=== PATIENT | female | born 1950 | race Caucasian/White ===

== ENCOUNTER 2021-11-04 08:20 | Observation (INO) ==
[2021-11-04] MEDS ORDERED: Ipratropium/Albuterol Neb 3 ML IH ONE (08:29)
[2021-11-04] MEDS ORDERED: methylPREDNISolone 125 MG/2 ML VIAL IVP ONE (08:29)
[2021-11-04] MEDS ORDERED: 0.9 % Sodium Chloride 1,000 ML IVC ONE (08:43)
[2021-11-04 09:13] LABS: Mean Corpuscular Volume 76.9 fL (83.0-100.0)
[2021-11-04 09:15] LABS: Basophils % 0.2 %; Eosinophils # 0.2 K/mcL (0.0-0.6); Eosinophils % 1.1 %; Hemoglobin 10.2 g/dL (11.5-15.4); Immature Granulocytes % 0.5 % (0-4); Lymphocytes % 14.5 %; Mean Corpuscular HGB Conc 28.3 g/dL (31.6-35.5); Mean Corpuscular Hemoglobin 21.8 pg (28.0-33.3); Mean Platelet Volume 10.7 fL (9.4-12.4); Monocytes # 0.7 K/mcL (0.0-1.3); Monocytes % 5.3 %; Neutrophils # 10.5 K/mcL (1.6-8.9); Platelet Count 249 K/mcL (140-400); Red Blood Count 4.68 M/mcL (3.82-4.97); Red Cell Distribution Width 22.9 % (11.5-14.5); Segmented Neutrophils % 78.4 %; White Blood Count 13.4 K/mcL (4.3-11.1)
[2021-11-04 09:17] LABS: Lymphocytes # 1.9 K/mcL (0.6-4.6)
[2021-11-04 09:32] LABS: BUN/Creatinine Ratio 22 (6-26); Blood Urea Nitrogen 22 mg/dL (8-23); Calcium 9.1 mg/dL (8.6-10.3); Carbon Dioxide 26 mEq/L (23-29); Chloride 105 mEq/L (98-107); Glucose 225 mg/dL (70-105); Osmolality,Calculated 296 (280-300); Potassium 3.9 mEq/L (3.5-5.1); Sodium 138 mEq/L (136-145); Troponin I < 0.03 ng/mL (< 0.04); eGFR For African Americans > 60 (> 60); eGFR For Non-African Americans 54 (> 60)
[2021-11-04 09:33] LABS: Hypochromasia Present (Not Present); Platelet Estimate Normal (Normal)
[2021-11-04 11:27] LABS: Influenza A PCR Negative (Negative); Influenza B PCR Negative (Negative); Resp. Syncytial Virus PCR Negative (Negative)
[2021-11-04 11:43] LABS: SARS-CoV-2 by PCR (In House) Negative (Negative)
[2021-11-04] MEDS ORDERED: *HR* Heparin 5,000 UNIT/ML VIAL IVP ONE (12:16)
[2021-11-04] MEDS ORDERED: *HR* Heparin 5,000 UNIT/ML VIAL IVP PRN ×2 (12:16)
[2021-11-04] MEDS ORDERED: Heparin 25,000UNIT/250ML 1/2NS 25,000 UNIT/250 ML IV.SOLN IVC SCH (12:30)
[2021-11-04 13:59] LABS: INR 1.2
[2021-11-04 14:02] LABS: Activated Partial Thrombo Time 43.7 Seconds (26.0-36.0); Heparin anti-factor XA UFH < 0.04 IU/mL (0.30-0.70)
[2021-11-04] MEDS ORDERED: MOM Conc 10 ML UD.LIQ PO PRN (14:11)
[2021-11-04] MEDS ORDERED: Ondansetron ODT 4 MG TAB.RAPDIS SL PRN (14:11)
[2021-11-04] MEDS ORDERED: Naloxone 0.4 MG/ML INJ IVP PRN (14:11)
[2021-11-04] MEDS ORDERED: Melatonin 3 MG TABLET PO PRN (14:11)
[2021-11-04] MEDS ORDERED: Mag Hydrox/Al Hydrox/Simeth 30 ML UDC PO PRN (14:11)
[2021-11-04] MEDS ORDERED: Perflutren Lipid Microsphere 1.3 ML in 0.9 % Sodium Chloride 8.7 ML IVP PRN (14:14)
[2021-11-04] MEDS: Nicotine 7 MG PATCH.TD24 TD SCH (20:50)
[2021-11-05 02:10] LABS: Hematocrit 29.9 % (35.3-44.9); Hemoglobin 8.8 g/dL (11.5-15.4); Mean Corpuscular HGB Conc 29.4 g/dL (31.6-35.5); Mean Corpuscular Volume 74.8 fL (83.0-100.0); Mean Platelet Volume 10.5 fL (9.4-12.4); Platelet Count 198 K/mcL (140-400); Red Cell Distribution Width 22.5 % (11.5-14.5); White Blood Count 10.9 K/mcL (4.3-11.1)
[2021-11-05 02:40] LABS: BUN/Creatinine Ratio 32 (6-26); Blood Urea Nitrogen 25 mg/dL (8-23); Calcium 9.1 mg/dL (8.6-10.3); Carbon Dioxide 26 mEq/L (23-29); Chloride 107 mEq/L (98-107); Glucose 135 mg/dL (70-105); Osmolality,Calculated 292 (280-300); Sodium 138 mEq/L (136-145); eGFR For African Americans > 60 (> 60); eGFR For Non-African Americans > 60 (> 60)
[2021-11-05] MEDS ORDERED: Heparin 25,000 UNIT/250 ML 25,000 UNIT/250 ML IV.SOLN IVC SCH (06:30)
[2021-11-05] MEDS ORDERED: METOPROLOL SUCCINATE 50 MG PO SCH (09:00)
[2021-11-05] MEDS: Nicotine 7 MG PATCH.TD24 TD SCH (09:31)
[2021-11-05] MEDS: NIFEdipine XL (24 HR) 30 MG TAB.ER.24 PO SCH (09:31)
[2021-11-05] MEDS: Venlafaxine XR (24 HR) 150 MG CAP.ER.24H PO SCH (09:31)
[2021-11-05] MEDS: lisinopriL 20 MG TABLET PO SCH (09:32)
[2021-11-05] MEDS: Aspirin Enteric Coated 81 MG Tablet PO SCH (09:32)
[2021-11-05] MEDS: Furosemide 20 MG TABLET PO SCH (09:32)
[2021-11-05] MEDS: predniSONE 20 MG TABLET PO SCH (09:32)
[2021-11-05] MEDS ORDERED: Iron Sucrose Complex 400 MG in 0.9 % Sodium Chloride 250 ML IVPB ONE (16:37)
[2021-11-05 17:24] LABS: Iron 22 mcg/dL (50-170)
[2021-11-05 17:42] LABS: Ferritin 9 ng/mL (10-120)
[2021-11-05] MEDS: Cyanocobalamin (B-12) 1,000 MCG/ML VIAL SQ SCH (17:59)
[2021-11-06 03:29] LABS: Chol/HDL Ratio 2.7 (0-4.9)
[2021-11-06 08:21] LABS: Red Cell Distribution Width 22.5 % (11.5-14.5)
[2021-11-06 08:22] LABS: Hematocrit 29.6 % (35.3-44.9); Hemoglobin 8.6 g/dL (11.5-15.4); Mean Corpuscular HGB Conc 29.1 g/dL (31.6-35.5); Mean Corpuscular Hemoglobin 22.1 pg (28.0-33.3); Mean Corpuscular Volume 75.9 fL (83.0-100.0); Mean Platelet Volume 10.2 fL (9.4-12.4); Platelet Count 193 K/mcL (140-400); White Blood Count 7.2 K/mcL (4.3-11.1)
[2021-11-06] MEDS: NIFEdipine XL (24 HR) 30 MG TAB.ER.24 PO SCH (09:50)
[2021-11-06] MEDS: predniSONE 20 MG TABLET PO SCH (09:50)
[2021-11-06] MEDS: Nicotine 7 MG PATCH.TD24 TD SCH (09:50)
[2021-11-06] MEDS: Cyanocobalamin (B-12) 1,000 MCG/ML VIAL SQ SCH (09:51)
[2021-11-06] MEDS: Venlafaxine XR (24 HR) 150 MG CAP.ER.24H PO SCH (09:51)
[2021-11-06] MEDS: Furosemide 20 MG TABLET PO SCH (09:51)
[2021-11-06] MEDS: Aspirin Enteric Coated 81 MG Tablet PO SCH (09:51)
[2021-11-06] MEDS: lisinopriL 20 MG TABLET PO SCH (09:51)
[2021-11-06 10:04] VITALS: BP 164/74; PULSE 52; TEMP 97.8; O2SAT 91
[2021-11-06] MEDS ORDERED: FLU Vac QV 21-22 (6Month+)/PF 0.5 ML SYRINGE IM ONE (11:52)
[2021-11-08 04:50] LABS: Lambda Qnt Free Light Chains 17.83 mg/L (5.71-26.30)
[2021-11-08 08:16] LABS: Kappa Qnt Free Light Chains 18.76 mg/L (3.30-19.40)
[2021-11-09 13:41] LABS: % Iron Saturation 5 % (15-50); Transferrin 343 mg/dL (200-400)
== END 2021-11-06 12:32 | disposition home or self-care (01) ==
LOC: EMEROOARM 08:20 → 3ANU 08:20 → SUATTDRO 16:39 → 3ANU 17:10
PROVIDERS: ADMIT Hospitalist; ATTEND Registered Nurse

== ENCOUNTER 2022-01-02 09:22 | Observation (INO) ==
[2022-01-02] MEDS ORDERED: Ipratropium/Albuterol Neb 3 ML IH ONE (10:08)
[2022-01-02] MEDS ORDERED: methylPREDNISolone 125 MG/2 ML VIAL IVP ONE (10:08)
[2022-01-02 10:52] LABS: Basophils % 0.2 %; Eosinophils % 0.5 %; Immature Granulocytes % 0.6 % (0-4)
[2022-01-02 10:54] LABS: Eosinophils # 0.1 K/mcL (0.0-0.6); Hematocrit 42.4 % (35.3-44.9); Hemoglobin 13.6 g/dL (11.5-15.4); Lymphocytes # 1.9 K/mcL (0.6-4.6); Lymphocytes % 16.2 %; Mean Corpuscular HGB Conc 32.1 g/dL (31.6-35.5); Mean Corpuscular Hemoglobin 26.8 pg (28.0-33.3); Mean Corpuscular Volume 83.5 fL (83.0-100.0); Mean Platelet Volume 10.6 fL (9.4-12.4); Monocytes # 0.9 K/mcL (0.0-1.3); Monocytes % 7.3 %; Platelet Count 177 K/mcL (140-400); Red Blood Count 5.08 M/mcL (3.82-4.97); Red Cell Distribution Width 20.3 % (11.5-14.5); Segmented Neutrophils % 75.2 %
[2022-01-02 10:58] LABS: VBG HCO3 29 mEq/L (21-27); VBG PCO2 55 mmHg (41-51); VBG PH 7.33 pH Units (7.32-7.42); VBG PO2 152 mmHg (25-50)
[2022-01-02] MEDS ORDERED: Albuterol 2.5 MG/3 ML NEBULIZER IH ONE (11:00)
[2022-01-02 11:11] LABS: INR 1.1
[2022-01-02 11:14] LABS: Activated Partial Thrombo Time 40.7 Seconds (26.0-36.0)
[2022-01-02 11:39] LABS: Adenovirus Not Detected (Not Detect); Bordetella Pertussis Not Detected (Not Detect); Chlamydophila pneumoniae Not Detected (Not Detect); Coronavirus 229E Not Detected (Not Detect); Coronavirus HKU1 Not Detected (Not Detect); Coronavirus NL63 Not Detected (Not Detect); Coronavirus OC43 Not Detected (Not Detect); Human Metapneumovirus Not Detected (Not Detect); Human Rhinovirus/Enterovirus Not Detected (Not Detect); Influenza A Subtype 2009 H1 Not Detected (Not Detect); Influenza B Not Detected (Not Detect); Mycoplasma pneumoniae Not Detected (Not Detect); Parainfluenza Virus 1 Not Detected (Not Detect); Parainfluenza Virus 2 Not Detected (Not Detect); Parainfluenza Virus 3 Not Detected (Not Detect); Parainfluenza Virus 4 Not Detected (Not Detect); Respiratory Syncytial Virus Not Detected (Not Detect); SARS-CoV-2 Not Detected (Not Detect)
[2022-01-02 12:33] LABS: Alanine Aminotransferase 19 Units/L (7-52); Albumin 3.8 g/dL (3.5-5.7); Albumin/Globulin Ratio 1.8 (1.1-2.2); Alkaline Phosphatase 83 Units/L (34-104); Aspartate Amino Transferase 17 Units/L (13-39); BUN/Creatinine Ratio 26 (6-26); Bilirubin,Direct 0.1 mg/dL (0.0-0.2); Bilirubin,Indirect 0.4 mg/dL (0.0-1.0); Bilirubin,Total 0.5 mg/dL (0.3-1.0); Blood Urea Nitrogen 17 mg/dL (8-23); Calcium 9.2 mg/dL (8.6-10.3); Carbon Dioxide 29 mEq/L (23-29); Chloride 104 mEq/L (98-107); Globulin 2.1 g/dL (2.4-3.5); Glucose 120 mg/dL (70-105); Osmolality,Calculated 293 (280-300); Potassium 3.5 mEq/L (3.5-5.1); Sodium 140 mEq/L (136-145); Total Protein 5.9 g/dL (6.4-8.9); Troponin I < 0.03 ng/mL (< 0.04); eGFR For African Americans > 60 (> 60); eGFR For Non-African Americans > 60 (> 60)
[2022-01-02] MEDS ORDERED: Ondansetron 4 MG/2 ML VIAL IVP PRN (15:14)
[2022-01-02] MEDS ORDERED: Acetaminophen 325 MG TABLET PO PRN (15:14)
[2022-01-02] MEDS ORDERED: Naloxone 0.4 MG/ML INJ IVP PRN (15:14)
[2022-01-02] MEDS ORDERED: Ipratropium/Albuterol Neb 3 ML IH PRN (15:15)
[2022-01-02] MEDS ORDERED: Furosemide 40 MG/4 ML VIAL IVP ONE (15:16)
[2022-01-02] MEDS ORDERED: *HR* Heparin 5,000 UNIT/ML VIAL IVP PRN ×2 (15:38)
[2022-01-02] MEDS ORDERED: Perflutren Lipid Microsphere 1.3 ML in 0.9 % Sodium Chloride 8.7 ML IVP PRN (15:38)
[2022-01-02] MEDS ORDERED: *HR* Heparin 5,000 UNIT/ML VIAL IVP ONE (15:38)
[2022-01-02] MEDS ORDERED: Heparin 25,000UNIT/250ML 1/2NS 25,000 UNIT/250 ML IV.SOLN IVC SCH ×2 (15:45→18:30)
[2022-01-02] MEDS ORDERED: Ipratropium/Albuterol Neb 3 ML IH SCH (16:00)
[2022-01-02 17:35] LABS: Hematocrit 43.5 % (35.3-44.9); Hemoglobin 13.7 g/dL (11.5-15.4); Immature Platelets 7.8 % (1.1-6.1); Mean Corpuscular HGB Conc 31.5 g/dL (31.6-35.5); Mean Corpuscular Hemoglobin 26.3 pg (28.0-33.3); Mean Corpuscular Volume 83.7 fL (83.0-100.0); Mean Platelet Volume 10.6 fL (9.4-12.4); Red Blood Count 5.2 M/mcL (3.82-4.97); Red Cell Distribution Width 20.4 % (11.5-14.5); White Blood Count 11.8 K/mcL (4.3-11.1)
[2022-01-02 17:43] LABS: Activated Partial Thrombo Time 30.4 Seconds (26.0-36.0)
[2022-01-02 17:44] LABS: INR 1.1; Prothrombin Time 12.2 Seconds (9.4-12.1)
[2022-01-02] MEDS ORDERED: MethylPREDNISolone 40 MG/ML VIAL IVP SCH (18:00)
[2022-01-02] MEDS ORDERED: Apixaban 5 MG TABLET PO SCH (21:00)
[2022-01-03 01:07] LABS: Basophils % 0.1 %; Hematocrit 40.7 % (35.3-44.9); Immature Granulocytes % 0.5 % (0-4); Lymphocytes # 1.5 K/mcL (0.6-4.6); Lymphocytes % 12.3 %; Mean Corpuscular HGB Conc 31.9 g/dL (31.6-35.5); Mean Corpuscular Hemoglobin 26.4 pg (28.0-33.3); Mean Corpuscular Volume 82.7 fL (83.0-100.0); Mean Platelet Volume 10.8 fL (9.4-12.4); Monocytes # 0.3 K/mcL (0.0-1.3); Monocytes % 2.6 %; Neutrophils # 10.2 K/mcL (1.6-8.9); Platelet Count 180 K/mcL (140-400); Red Blood Count 4.92 M/mcL (3.82-4.97); Red Cell Distribution Width 20.2 % (11.5-14.5); Segmented Neutrophils % 84.5 %; White Blood Count 12.1 K/mcL (4.3-11.1)
[2022-01-03 01:18] LABS: BUN/Creatinine Ratio 23 (6-26); Blood Urea Nitrogen 20 mg/dL (8-23); Calcium 9.5 mg/dL (8.6-10.3); Carbon Dioxide 32 mEq/L (23-29); Chloride 100 mEq/L (98-107); Chol/HDL Ratio 2.4 (0-4.9); Cholesterol 202 mg/dL (< 200); Glucose 134 mg/dL (70-105); HDL Cholesterol 83 mg/dL (40-59); LDL Cholesterol,Calculated 103 mg/dL (< 100); Magnesium 1.7 mg/dL (1.6-2.6); Osmolality,Calculated 293 (280-300); Sodium 139 mEq/L (136-145); Triglycerides 82 mg/dL (< 150); eGFR For African Americans > 60 (> 60); eGFR For Non-African Americans > 60 (> 60)
[2022-01-03] MEDS ORDERED: NIFEdipine XL (24 HR) 30 MG TAB.ER.24 PO SCH (09:00)
[2022-01-03] MEDS ORDERED: predniSONE 20 MG TABLET PO SCH (09:00)
[2022-01-03] MEDS: amLODIPine 5 MG TABLET PO SCH (09:17)
[2022-01-03] MEDS: Furosemide 40 MG/4 ML VIAL IVP SCH ×2 (09:17→20:12)
[2022-01-03] MEDS: lisinopriL 20 MG TABLET PO SCH (09:18)
[2022-01-03] MEDS: Apixaban 5 MG TABLET PO SCH ×2 (11:22→20:12)
[2022-01-03] MEDS: Venlafaxine XR (24 HR) 150 MG CAP.ER.24H PO SCH (20:12)
[2022-01-04] MEDS: Apixaban 5 MG TABLET PO SCH ×2 (07:58→21:26)
[2022-01-04] MEDS: amLODIPine 5 MG TABLET PO SCH (07:59)
[2022-01-04] MEDS: lisinopriL 20 MG TABLET PO SCH (07:59)
[2022-01-04] MEDS: Furosemide 40 MG TABLET PO SCH (07:59)
[2022-01-04 09:04] LABS: Basophils % 0.1 %; Eosinophils # 0.1 K/mcL (0.0-0.6); Eosinophils % 0.6 %; Hematocrit 39.7 % (35.3-44.9); Hemoglobin 12.7 g/dL (11.5-15.4); Immature Granulocytes % 0.2 % (0-4); Lymphocytes # 3.2 K/mcL (0.6-4.6); Lymphocytes % 39.2 %; Mean Corpuscular Hemoglobin 26.6 pg (28.0-33.3); Mean Corpuscular Volume 83.2 fL (83.0-100.0); Monocytes # 0.7 K/mcL (0.0-1.3); Monocytes % 8.5 %; Neutrophils # 4.2 K/mcL (1.6-8.9); Platelet Count 165 K/mcL (140-400); Red Blood Count 4.77 M/mcL (3.82-4.97); Red Cell Distribution Width 20.3 % (11.5-14.5); Segmented Neutrophils % 51.4 %; White Blood Count 8.2 K/mcL (4.3-11.1)
[2022-01-04] MEDS ORDERED: Furosemide 20 MG/2 ML VIAL IVP ONE (09:24)
[2022-01-04 09:28] LABS: BUN/Creatinine Ratio 36 (6-26); Blood Urea Nitrogen 34 mg/dL (8-23); Carbon Dioxide 34 mEq/L (23-29); Chloride 102 mEq/L (98-107); Glucose 127 mg/dL (70-105); Magnesium 1.8 mg/dL (1.6-2.6); Osmolality,Calculated 299 (280-300); Phosphorous 3.9 mg/dL (2.7-4.5); Potassium 3.2 mEq/L (3.5-5.1); Sodium 140 mEq/L (136-145); eGFR For African Americans > 60 (> 60); eGFR For Non-African Americans 58 (> 60)
[2022-01-04] MEDS ORDERED: lisinopriL 20 MG TABLET PO ONE (11:13)
[2022-01-04] MEDS ORDERED: amLODIPine 5 MG TABLET PO ONE (12:00)
[2022-01-04] MEDS: hydroCHLOROthiazide 25 MG TABLET PO SCH (16:32)
[2022-01-04] MEDS: Venlafaxine XR (24 HR) 150 MG CAP.ER.24H PO SCH (21:34)
[2022-01-05 06:04] LABS: BUN/Creatinine Ratio 39 (6-26); Blood Urea Nitrogen 28 mg/dL (8-23); Calcium 10.2 mg/dL (8.6-10.3); Carbon Dioxide 33 mEq/L (23-29); Chloride 100 mEq/L (98-107); Glucose 112 mg/dL (70-105); Magnesium 1.7 mg/dL (1.6-2.6); Osmolality,Calculated 296 (280-300); Phosphorous 4.1 mg/dL (2.7-4.5); Potassium 3.6 mEq/L (3.5-5.1); Sodium 140 mEq/L (136-145); eGFR For African Americans > 60 (> 60); eGFR For Non-African Americans > 60 (> 60)
[2022-01-05 07:05] VITALS: TEMP 98.5; O2SAT 96
[2022-01-05] MEDS: Apixaban 5 MG TABLET PO SCH (07:56)
[2022-01-05] MEDS: hydroCHLOROthiazide 25 MG TABLET PO SCH (07:56)
[2022-01-05] MEDS: Furosemide 40 MG TABLET PO SCH (07:56)
[2022-01-05] MEDS ORDERED: amLODIPine 5 MG TABLET PO SCH (09:00)
[2022-01-05] MEDS ORDERED: lisinopriL 20 MG TABLET PO SCH (09:00)
[2022-01-05 09:56] VITALS: BP 149/53; PULSE 42
== END 2022-01-05 10:53 | disposition home or self-care (01) ==
LOC: EMEROOARM 09:22 → 3NENU 09:22 → SUATTDRO 15:28 → 3NENU 16:55
PROVIDERS: ADMIT Student in an Organized Health Care Education/Training Program; ATTEND Internal Medicine